=== PATIENT | male | born 1950 | race Two or more races ===

== ENCOUNTER 2018-08-31 15:57 | Emergency (ER) | payer MEDICARE, MEDICAID | END 2018-08-31 17:46 | disposition home or self-care (01) | LOC: ER 16:00 | DX: Z48.01 Encounter for change or removal of surgical wound dressing (principal); E11.9 Type 2 diabetes mellitus without complications; E78.00 Pure hypercholesterolemia, unspecified | CPT/HCPCS: Z7502 ==